=== PATIENT | male | born 1945 | race Caucasian/White ===

== ENCOUNTER 2018-09-10 21:20 | Emergency (ER) | payer MEDICARE, OTHER ==
[~2018-09-10] VITALS: Ht 165.1 cm; Wt 63.5 kg
[~2018-09-10 21:20] MED LIST: ASA; LISINOPRIL; NORVASC
[2018-09-10] MEDS ORDERED: LOSA25TA27 PO (21:51)
[2018-09-10] MEDS ORDERED: NIAC1000 PO (21:51)
[2018-09-10] MEDS ORDERED: AMLO2.5T4 PO (21:51)
[2018-09-10] MEDS ORDERED: ATORVASTATIN PO (21:51)
--- NOTE | 2018-09-10 22:48 | NUR ---
Pt ambulates to ER with c/o right ankle pain x 4 days, denies injury to area.
--- NOTE | 2018-09-10 23:14 | NUR ---
Dr. Shilpa DE LA VEGA MD at bedside to evaluate pt.
--- NOTE | 2018-09-11 00:21 | NUR ---
Patient discharged to home in stable conditon. Written and verbal after care instructions given. Patient verbalizes understanding of instructions. Pt ambulated out of ER in steady gait w . All belongings w pt. VSS. NAD noted.
[2018-09-11 00:23] VITALS: BP 131/84
== END 2018-09-11 00:24 | disposition home or self-care (01) ==
LOC: ER 21:20
DX: M25.571 Pain in right ankle and joints of right foot (principal); I10 Essential (primary) hypertension; E78.00 Pure hypercholesterolemia, unspecified; Z90.49 Acquired absence of other specified parts of digestive tract; Z79.899 Other long term (current) drug therapy
CPT/HCPCS: 73610; A4663

== ENCOUNTER 2022-03-20 09:26 | Emergency (ER) | payer MEDICARE, OTHER ==
[~2022-03-20] VITALS: Ht 165.1 cm; Wt 59.0 kg
[~2022-03-20 09:26] MED LIST changes: +AMLO2.5T4 PO; -ASA; +ATORVASTATIN PO; -LISINOPRIL; +LOSA25TA27 PO; +NIAC1000 PO; -NORVASC
--- NOTE | 2022-03-20 09:41 | NUR ---
at bedside for evaluation.
[2022-03-20 10:03] LABS: HEMATOCRIT 40.5 % (36.7-47.1); MEAN CORPUSCULAR HEMOGLOBIN 32.1 uug (23.8-33.4); MEAN CORPUSCULAR VOLUME 95.4 fL (73.0-96.2); PLATELET COUNT (AUTO) 190 K/uL (152-348)
[2022-03-20 10:13] LABS: CREATININE 1.1 mg/dL (0.6-1.3)
[2022-03-20 10:58] VITALS: BP 125/87
--- NOTE | 2022-03-20 11:00 | NUR ---
Patient discharged to home in stable condition. Written and verbal after care instructions given. Patient verbalizes understanding of instructions. Stressed follow up or return to ER for worsening s/s.
== END 2022-03-20 11:01 | disposition home or self-care (01) ==
LOC: ER 09:38
DX: R04.0 Epistaxis (principal); I10 Essential (primary) hypertension; E78.5 Hyperlipidemia, unspecified; Z79.82 Long term (current) use of aspirin; R73.9 Hyperglycemia, unspecified; Z90.49 Acquired absence of other specified parts of digestive tract; Z85.46 Personal history of malignant neoplasm of prostate; Z79.899 Other long term (current) drug therapy
CPT/HCPCS: 36415; 85025; 85730; A4663